=== PATIENT | female | born 1955 | race Caucasian/White ===

== ENCOUNTER 2024-05-04 11:24 | Outpatient (CLI) | payer MEDICARE, SELFPAY ==
--- NOTE | ~2024-05-04 | MR_ITS ---
EXAMINATION: MR brain/brain stem wo/w con DATE: 05/04/2024 12:58 INDICATION: Amaurosis fugax with right eye vision loss one week prior TECHNIQUE: Magnetic resonance imaging (MRI) of the brain and brainstem was performed without and with 18 mL Multihance intravenous contrast. Sequences included sagittal and axial T1-weighted SE, axial d iffusion-weighted FS SE, axial T2*-weighted GRE, axial T2-weighted FLAIR, and axial T2-weighted FSE. Postcontrast axial and coronal T1-weighted SE was obtained. Apparent diffusion coefficient (ADC) maps were created. COMPARISON: None. FINDINGS: There are no areas of restricted diffusion to suggest acute infarction. No intracranial hemorrhage or abnormal intracranial mass lesion. There are scattered areas of nonspecific increased T2-weighted si gnal intensity in the cerebral white matter, predominantly involving the deep and periventricular whi te matter. There are no intraparenchymal signal abnormalities seen on the other pulse sequences. The ventricles are symmetric and normal in size. There are no abnormal extra-axial fluid collections. John w voids are seen in the cerebral arteries on the T2-weighted sequences consistent with their expected patency. There is mucosal thickening in the bilateral maxillary and ethmoid sinuses with mucous rete ntion cyst in the right maxillary sinus. Visualized orbits and soft tissues are unremarkable. There a re no areas of abnormal enhancement on the post contrast images. IMPRESSION: 1. Normal for age brain MR with a few scattered small foci of calcific white matter T2 hyperintensity likely sequela of chronic small vessel disease. Reviewed, dictated and finalized at location A. IMPRESSION: 1. Normal for age brain MR with a few scattered small foci of calcific white ma tter T2 hyperintensity likely sequela of chronic small vessel disease.
--- NOTE | ~2024-05-04 | MR_ITS ---
EXAMINATION: MRA brain wo con DATE: 05/04/2024 12:59 INDICATION: Amaurosis fugax with right-sided visual loss one week prior TECHNIQUE: Magnetic resonance angiography (MRA) of the brain was performed without intravenous contrast by the 3 D [id number] technique. COMPARISON: None. FINDINGS: There is normal flow related signal seen within the vertebral, basilar and internal carotid arteries. There is no proximal stenosis. There are no aneurysms identified. Both A1 and P1 segments are pat ent. The left A1 segment is diminutive with the majority of flow to the left anterior cerebral artery appearing to be supplied via a larger caliber patent anterior to indicating artery. There is also a patent right posterior commuting artery and a possible patent but diminutive left posterior commuting artery. Flow in the cerebral arteries is symmetric. IMPRESSION: 1. Unremarkable cerebral MR cerebral angiogram with no hemodynamic significant stenosis or aneurysm. Reviewed, dictated and finalized at location A.
== END 2024-05-04 11:25 ==
LOC: MICIMG 11:27
PROVIDERS: PCP Family Medicine; Visit Provider Family Medicine
DX: G45.8 Other transient cerebral ischemic attacks and related syndromes (principal); E78.5 Hyperlipidemia, unspecified; I10 Essential (primary) hypertension; Q21.12 Patent foramen ovale; I67.81 Acute cerebrovascular insufficiency; R26.9 Unspecified abnormalities of gait and mobility
CPT/HCPCS: 70544; 70553; A9577

== ENCOUNTER 2024-06-04 08:16 | Outpatient (CLI) | payer MEDICARE, SELFPAY ==
--- NOTE | ~2024-06-04 | CT_ITS ---
CTA neck Ordering provider: Mary Tubbs MD History: . Hyperlipidemia . Comparison: None. Technique: CT angiogram neck was performed following timed intravenous injection of contrast. Thin sl ice axial images and reformatted coronal images were obtained. Three dimensional reformatted images o f the neck were also obtained using a [employer] workstation. Automated exposure control and iterative re construction technique were employed. The dose-length product was 731.96 mGy-cm. 100 mL Omnipaque 350 was given IV. FINDINGS: RIGHT CERVICAL CAROTID ARTERY: Normal caliber and contour. Percent stenosis per NASCET criteria is 0 %. No carotid dissection. Otherwise, no significant atheromatous disease or stenosis of the cervical carotid system. LEFT CERVICAL CAROTID ARTERY: Normal caliber and contour. Percent stenosis per NASCET criteria is 0% . No carotid dissection. Otherwise, no significant atheromatous disease or stenosis of the cervical c arotid system. VISUALIZED BILATERAL INTRACRANIAL CAROTID ARTERIES: Mild atherosclerotic changes. VERTEBRAL BASILAR SYSTEM: Severe narrowing in the left vertebral artery near to the origin VISUALIZED AORTIC ARCH AND BRANCHING VESSELS: Normal caliber and contour. No significant atheromatous disease. SOFT TISSUES: Lobulated outline of the right thyroid which may indicate nodules. Enlarged lymph nodes are seen in the left jugular chain the largest measures 1.1 cm. CERVICAL SPINE: Age appropriate degenerative changes. Bilateral maxillary sinus disease more on the left side. IMPRESSION: Normal CTA neck. Percent stenosis per NASCET criteria is 0%. 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 Reviewed, dictated and finalized at location A.
[2024-06-04 08:39] LABS: Estimated Glomerular Filt Rate > 60
== END 2024-06-04 08:17 | disposition home or self-care (01) ==
LOC: MICIMG 08:17
PROVIDERS: PCP Family Medicine; Visit Provider Family Medicine
DX: E78.5 Hyperlipidemia, unspecified (principal); I67.81 Acute cerebrovascular insufficiency
CPT/HCPCS: 70498; Q9967